=== PATIENT | male | born 1955 | race Caucasian/White ===

== ENCOUNTER 2017-03-29 08:45 | Inpatient (IN) | payer OTHER ==
[2017-03-29 12:28] VITALS: BMI 50.2
[2017-04-18] MEDS ORDERED: Midazolam HCl 2 mg/2 ml Vial ONE (08:09)
[2017-04-18] MEDS ORDERED: Ropivacaine 0.2% HCl/PF 20 ML ONE (08:09)
[2017-04-18] MEDS ORDERED: Fentanyl 100 MCG/2 ML VIAL ONE ×2 (08:09→10:43)
[2017-04-18] MEDS ORDERED: Sodium Chloride 0.9% 100 ML ONE ×2 (08:49→12:49)
[2017-04-18] MEDS ORDERED: Ondansetron HCl/PF 4 MG/2 ML Vial IVP PRN ×3 (10:32→12:55)
[2017-04-18] MEDS ORDERED: HYDROcodone/Acetaminophen 10/325 mg Tablet PO PRN ×2 (10:32)
[2017-04-18] MEDS ORDERED: Ketorolac Tromethamine 30 MG/ML VIAL IVP PRN (10:32)
[2017-04-18] MEDS ORDERED: traMADol HCl 50 MG TAB PO PRN ×3 (10:32→11:09)
[2017-04-18] MEDS ORDERED: Promethazine HCl 25 MG/ML VIAL IM PRN ×2 (10:32→12:55)
[2017-04-18] MEDS ORDERED: Ropivacaine HCl/PF 250 ML in Premix Bag 1 BAG NERVE BLCK SCH (10:32)
[2017-04-18] MEDS ORDERED: Fentanyl 100 MCG/2 ML VIAL IV PRN (10:33)
[2017-04-18] MEDS ORDERED: Bupivacaine HCl 0.5%/Epinephrine 1:200,000/PF 30 ml Vial ONE (10:38)
[2017-04-18] MEDS ORDERED: Neomycin-Polymyxin 1 ML AMP ONE (10:38)
[2017-04-18] MEDS ORDERED: Ondansetron HCl/PF 4 MG/2 ML Vial ONE (11:03)
[2017-04-18] MEDS ORDERED: Ketorolac Tromethamine 30 MG/ML VIAL ONE (11:03)
[2017-04-18] MEDS ORDERED: Succinylcholine Chloride 20 MG/ML 10 ml SYRINGE FS ONE (11:03)
[2017-04-18] MEDS ORDERED: ePHEDrine/0.9% NaCl/PF SYRINGE 50 mg/10 ml ONE (11:03)
[2017-04-18] MEDS ORDERED: Dexamethasone 20 MG/5 ML VIAL ONE (11:03)
[2017-04-18] MEDS ORDERED: Glycopyrrolate 0.2 MG/ML 5 ML SYRINGE ONE (11:03)
[2017-04-18] MEDS ORDERED: Lidocaine 1% PF 5 ML VIAL ONE (11:03)
[2017-04-18] MEDS ORDERED: PHENYLEPHRINE-NS 100 MCG/ML 10 ML SYRINGE ONE (11:03)
[2017-04-18] MEDS ORDERED: Propofol 200 MG/20 ML VIAL ONE (11:03)
[2017-04-18] MEDS ORDERED: Morphine Sulfate 2 MG/ML SYRINGE IVP PRN (11:09)
[2017-04-18] MEDS ORDERED: Acetaminophen 325 MG TAB PO PRN (11:09)
[2017-04-18] MEDS ORDERED: PROVENTIL INHALER 6.7 G (200 INHALATIONS) INH PRN (11:14)
[2017-04-18] MEDS ORDERED: Tranexamic Acid 1,000 MG in Sodium Chloride 0.9% 100 ML IVPB SCH ×2 (11:15→13:00)
[2017-04-18] MEDS ORDERED: Acetaminophen 1,000 MG in Premix Bag 1 BAG IVPB SCH (11:15)
[2017-04-18] MEDS ORDERED: Promethazine HCl 25 MG/ML VIAL SLOW IVP PRN (12:55)
[2017-04-18] MEDS ORDERED: Ropivacaine 0.5% HCl/PF (150 MG/30 ML VIAL) ONE (13:59)
--- NOTE | 2017-04-18 14:24 | RAD ---
TWO VIEWS OF THE LEFT KNEE: COMPARISON: None. HISTORY: Status post left knee arthroplasty. FINDINGS: Two views of the left knee show the patient to be status post left knee arthroplasty without perihar dware lucency or fracture. Air in the soft tissues and overlying skin rosalinda are from recent surge ry. IMPRESSION: Status post left knee arthroplasty without evidence of complication. POS: [facility]
--- NOTE | 2017-04-18 16:29 | PDOC.PN ---
- Subjective Encounter Start Date: 04/18/17 Encounter Start Time: 16:25 Subjective: Consulted for general med mgmt. s/p L TKA with hx of HTN, COPD, HLD, -: morbid obesity and osteoarthritis. c/o some L knee pain now relieved -: with nerve block and IV pain meds. - Objective MAR Reviewed: Yes Vital Signs & Weight: Weight Weight 340 lb Additional Labs: Laboratory Tests 03/29/17 03/29/17 13:20 13:20 WBC 8.3 Hgb 12.0 L Hct 37.1 L Plt Count 323 Sodium 137 Potassium 4.5 Chloride 104 Carbon Dioxide 24 Anion Gap 14 BUN 32 H Creatinine 1.09 Estimated GFR (MDRD) 69 Glucose 104 Calcium 10.0 EKG Reviewed by me: Yes (03/29/17 - NSR, No acute ST-T wave changes) Dx/Plan (1) HTN (hypertension) Code(s): I10 - ESSENTIAL (PRIMARY) HYPERTENSION Status: Chronic Qualifiers: Hypertension type: essential hypertension Qualified Code(s): I10 - Essential (primary) hypertension Comment: Resume Olmesartan/HCTZ 40/25 po daily (2) COPD (chronic obstructive pulmonary disease) Status: Chronic Comment: Resume home MDI's, Duonebs prn, O2 prn (3) HLD (hyperlipidemia) Code(s): E78.5 - HYPERLIPIDEMIA, UNSPECIFIED Status: Chronic Comment: Resume Pravachol 20mg HS (4) Morbid obesity Code(s): E66.01 - MORBID (SEVERE) OBESITY DUE TO EXCESS CALORIES Status: Acute (5) Status post total knee replacement, left Code(s): Z96.652 - PRESENCE OF LEFT ARTIFICIAL KNEE JOINT Status: Acute Comment: Pain control, ASA 325mg BID, DVT ppx - Plan plan discussed w/ family, PT/OT, criminal justice social worker, incentive spirometry, out of bed/ambulate, DVT proph w/lovenox, DVT proph w/SCDs Stable overall -: Resume home medications and monitor clinically -: DVT ppx -: Pain control per Ortho team -: AM lab: CBC * .
[2017-04-18] MEDS: Sodium Chloride 0.9% 1,000 ML IV SCH ×2 (17:08→20:35)
[2017-04-18] MEDS: Mometasone/Formoterol 120 PUFF INHALER INH SCH (18:47)
[2017-04-18] MEDS: Senokot S 8.6-50 MG TAB PO SCH (20:26)
[2017-04-18] MEDS: Aspirin 325 MG TAB PO SCH (20:26)
[2017-04-18] MEDS: Ferrous Gluconate 324 MG TAB PO SCH (20:26)
[2017-04-18] MEDS: Pravastatin Sodium 20 MG TAB PO SCH (20:26)
[2017-04-18] MEDS: Zolpidem Tartrate 5 MG TAB PO PRN (21:13)
[2017-04-19 06:16] LABS: Hematocrit 30.5 % (42.0-52.0); Mean Platelet Volume 7.1 fL (7.4-10.4); White Blood Cell (WBC) Count 10.7 thou/uL (4.8-10.8)
[2017-04-19] MEDS: Sodium Chloride 0.9% 1,000 ML IV SCH ×2 (06:44→11:09)
[2017-04-19] MEDS: Mometasone/Formoterol 120 PUFF INHALER INH SCH ×2 (07:16→19:32)
[2017-04-19] MEDS: Aspirin 325 MG TAB PO SCH ×2 (07:46→20:33)
[2017-04-19] MEDS: Hydrochlorothiazide 25 MG TAB PO SCH (07:46)
[2017-04-19] MEDS: Loratadine 10 MG TAB PO SCH (07:46)
[2017-04-19] MEDS: Multivitamin W/ Minerals 1 TAB PO SCH (07:47)
[2017-04-19] MEDS: Ferrous Gluconate 324 MG TAB PO SCH ×2 (07:47→20:33)
[2017-04-19] MEDS: Senokot S 8.6-50 MG TAB PO SCH ×2 (07:47→20:34)
[2017-04-19] MEDS ORDERED: Non-Formulary Item 1 EACH (Olmesartan/Hydrochlorothiazide [Benicar Hct] 1 TABLET) PO SCH (09:00)
[2017-04-19] MEDS: HYDROcodone/Acetaminophen 10/325 mg Tablet PO PRN ×2 (09:24→20:34)
--- NOTE | 2017-04-19 13:21 | OP ---
DATE OF PROCEDURE: 04/18/2017 PREOPERATIVE DIAGNOSIS: Osteoarthrosis, left knee. POSTOPERATIVE DIAGNOSIS: Osteoarthrosis, left knee. PROCEDURE: Left total knee arthroplasty. ANESTHESIA: General. SURGEON: Adolfo Ross M.D. ASSISTANTS: Gary Knight MD and Darwin Barragan PA-C COMPLICATIONS: None. CONDITION: Good. ESTIMATED BLOOD LOSS: Minimal. DRAINS: None. TOURNIQUET: Per anesthesia. TECHNIQUE: Consent was obtained. The patient was taken to the operating room, placed in the supine position. After adequate general anesthesia had been achieved, the patient's left knee was examine d. The patient had flexion only to 100 degrees and lacked 5 degrees full extension, varus deformity , moderate effusion, diffuse crepitus. He was then positioned, prepped and draped in the usual ster ile fashion and tourniquet placed on left upper thigh. Leg was elevated, exsanguinated, and tourniq uet inflated prior to incision. Standard midline vertical incision was made. It was taken down to subcutaneous tissue exposing extensor mechanism. Medial parapatellar arthrotomy was performed. Pat nidia subluxed laterally and the patient had severe tricompartmental disease with large erosive [place] es in the femur especially medial compartment. ACL was completely disrupted. Using an intramedulla ry guide, distal 5 degree resection on the femur was performed using AP and epicondylar access, prop er rotation and position and the size 7 cutting block was placed. Anterior, posterior, and chamfer cuts were completed for the size 7 evolution femur. Tibia was then subluxed anteriorly. Using exte rnal guide, a 0 mm resection was done from the medial compartment. The menisci and cruciate ligamen ts were then debrided. Additional medial release was performed and good balancing was noted at 0 an d 90 degrees with the 14 mm spacer block. The patella was then measured approximately 9-10 mm resec tion was performed and a 38 mm patella was medialized. The trial components were then placed, a 7 f emur, a 7 tibia, 14 mm bearing surface and 38 patella was put through range of motion. The patient had full extension, flexion up to 120 degrees, good balancing and stability through full range. Tib ial base plate was then marked and prepared with a broach. All surfaces were irrigated copiously, d ried, and the femur, tibia, and patella cemented. Excess cement removed and allowed to harden with a 14 mm spacer. The 14 mm spacer was chosen and snap fit. The knee was then irrigated copiously an d the hemostasis obtained. Arthrotomy closed with #2 M[place]il[place], #1 Vicryl, the subcu with 0 and 2-0 Vicryl, and the skin with rosalinda. Sterile bulky dressing was applied and patient taken to recover y in stable condition. Prognosis was good. Begin rehab protocol. Darwin Barragan, Physician [employer] was critical to the positioning and retraction of the patient du e to the patient's significant obesity and stiffness. He allowed access to the critical measurement and alignments.
--- NOTE | 2017-04-19 16:50 | PDOC.PN ---
- Subjective Encounter Start Date: 04/19/17 Encounter Start Time: 16:35 Subjective: c/o pain in L knee but overall ok. s/p L TKA POD #1. - Objective MAR Reviewed: Yes Vital Signs & Weight: Vital Signs (12 hours) Temp Pulse Resp BP Pulse Ox 04/19/17 16:00 97.5 F L 85 19 94/65 91 L 04/19/17 08:00 98.1 F 93 18 97 Weight Admit Weight 340 lb Weight 340 lb I&O: 04/18/17 04/19/17 04/20/17 06:59 06:59 06:59 Intake Total 3530 Output Total 1830 Balance 1700 Result Diagrams: 04/19/17 05:26 Phys Exam - Physical Examination Constitutional: NAD HEENT: PERRLA, oral pharynx no lesions Neck: no JVD, supple diminished in bases Respiratory: no wheezing Cardiovascular: RRR Gastrointestinal: soft, non-tender, no distention, positive bowel sounds L knee with SAMUEL wrap in place Musculoskeletal: pulses present, edema present Neurological: moves all 4 limbs Psychiatric: A&O x 3 Skin: normal turgor, cap refill <2 seconds Dx/Plan (1) HTN (hypertension) Code(s): I10 - ESSENTIAL (PRIMARY) HYPERTENSION Status: Chronic Qualifiers: Hypertension type: essential hypertension Qualified Code(s): I10 - Essential (primary) hypertension Comment: Resume Olmesartan/HCTZ 40/25 po daily, stable (2) COPD (chronic obstructive pulmonary disease) Status: Chronic Comment: Resume home MDI's, Duonebs prn, O2 prn (3) HLD (hyperlipidemia) Code(s): E78.5 - HYPERLIPIDEMIA, UNSPECIFIED Status: Chronic Comment: Resume Pravachol 20mg HS (4) Morbid obesity Code(s): E66.01 - MORBID (SEVERE) OBESITY DUE TO EXCESS CALORIES Status: Acute (5) Status post total knee replacement, left Code(s): Z96.652 - PRESENCE OF LEFT ARTIFICIAL KNEE JOINT Status: Acute Comment: Pain control, ASA 325mg BID, DVT ppx, Joint U protocol - Plan plan discussed w/ family, PT/OT, nephrology social worker, incentive spirometry, out of bed/ambulate, DVT proph w/SCDs Stable overall -: Continue routine Joint U protocol -: Resume home pulmonary medications -: DVT ppx -: AM lab: CBC * .
[2017-04-19] MEDS: Pravastatin Sodium 20 MG TAB PO SCH (20:34)
[2017-04-19] MEDS: Zolpidem Tartrate 5 MG TAB PO PRN (20:34)
[2017-04-20] MEDS: Sodium Chloride 0.9% 1,000 ML IV SCH ×2 (02:29→07:29)
[2017-04-20 05:56] LABS: Hematocrit 31.4 % (42.0-52.0); Mean Platelet Volume 6.8 fL (7.4-10.4); Red Blood Cell (RBC) Count 3.46 mill/uL (4.70-6.10); White Blood Cell (WBC) Count 10.1 thou/uL (4.8-10.8)
[2017-04-20] MEDS: Mometasone/Formoterol 120 PUFF INHALER INH SCH (06:44)
[2017-04-20] MEDS: Aspirin 325 MG TAB PO SCH (07:28)
[2017-04-20] MEDS: Senokot S 8.6-50 MG TAB PO SCH (07:28)
[2017-04-20] MEDS: Ferrous Gluconate 324 MG TAB PO SCH (07:28)
[2017-04-20] MEDS: Hydrochlorothiazide 25 MG TAB PO SCH (07:29)
[2017-04-20] MEDS: Loratadine 10 MG TAB PO SCH (07:29)
[2017-04-20] MEDS: Multivitamin W/ Minerals 1 TAB PO SCH (07:29)
[2017-04-20] MEDS ORDERED: Tamsulosin HCl 0.4 MG CAP PO SCH (09:15)
[2017-04-20] MEDS: HYDROcodone/Acetaminophen 10/325 mg Tablet PO PRN ×2 (09:39→13:54)
[2017-04-20 11:50] VITALS: BP 109/54; TEMP 97.7
== END 2017-04-20 17:30 | disposition home or self-care (01) | DRG 470 ==
LOC: SURG B 04-18 07:12 → SJJU 04-18 11:51
PROVIDERS: ADMIT Orthopaedic Surgery; ATTEND Orthopaedic Surgery
PROC: 0SRD0J9 Replacement of Left Knee Joint with Synthetic Substitute, Cemented, Open Approach (ICD-10-PCS; principal; 2017-04-18)
PROC: 3E0T3CZ (ICD-10-PCS; 2017-04-18)
DX: M17.12 Unilateral primary osteoarthritis, left knee (principal); Z68.43 Body mass index [BMI] 50.0-59.9, adult; I10 Essential (primary) hypertension; J44.9 Chronic obstructive pulmonary disease, unspecified; E78.5 Hyperlipidemia, unspecified; E66.01 Morbid (severe) obesity due to excess calories
CPT/HCPCS: 36415; 85027; 86850; 86900; 86901; C1713; C1776; G8978-GP-CL; G8979-GP-CI; J0670; J1100; J1885; J2001; J2250; J2405; J2704; J2795; J3010; J7050

== ENCOUNTER 2021-05-09 19:30 | Outpatient (CLI) | payer MEDICARE | END 2021-05-09 19:31 | disposition home or self-care (01) | LOC: SLEEPLAB 19:30 | PROVIDERS: ATTEND Psychiatry & Neurology Neurology | DX: G47.33 Obstructive sleep apnea (adult) (pediatric) (principal); R53.83 Other fatigue; R06.83 Snoring; G47.00 Insomnia, unspecified; G47.10 Hypersomnia, unspecified; J44.9 Chronic obstructive pulmonary disease, unspecified | CPT/HCPCS: 95810 ==

== ENCOUNTER 2021-06-07 19:00 | Outpatient (CLI) | payer MEDICARE | END 2021-06-07 19:01 | disposition home or self-care (01) | LOC: SLEEPLAB 19:00 | PROVIDERS: ATTEND Psychiatry & Neurology Neurology | DX: G47.33 Obstructive sleep apnea (adult) (pediatric) (principal); R06.83 Snoring; R53.83 Other fatigue; G47.10 Hypersomnia, unspecified; E66.9 Obesity, unspecified; Z68.43 Body mass index [BMI] 50.0-59.9, adult | CPT/HCPCS: 95811 ==

== ENCOUNTER 2023-12-13 12:42 | Outpatient (CLI) | payer MEDICARE ==
[2023-12-13 13:51] LABS: #Basophils 0.04 10x3/uL (0.0-0.2); #Monocytes 0.63 10x3/uL (0.0-1.1); #Neutrophils 3.69 10x3/uL (1.5-8.4); %Basophils 0.6 % (0.0-2.0); %Eosinophils 7.8 % (0.0-6.0); %Lymphocytes 23.9 % (18.0-47.0); %Monocytes 9.8 % (0.0-10.0); %Neutrophils 57.6 % (40.0-75.0); Hematocrit 35.4 % (38.8-50.0); Hemoglobin 11.9 g/dL (13.5-17.5); Mean Corpuscular HGB CONC 33.6 g/dL (32.0-36.0); Mean Corpuscular Hemoglobin 32.6 pg (27.0-33.0); Mean Platelet Volume 8.8 fl (7.4-10.4); Platelet Count 204 10x3/uL (150-450); RBC Distribution Width 13.8 % (11.5-14.5); Red Blood Cell (RBC) Count 3.65 10x6/uL (4.32-5.72); White Blood Cell (WBC) Count 6.4 10x3/uL (3.5-10.5)
[2023-12-13 14:55] LABS: Anion Gap 14 mmol/L (10-20); BUN (Urea Nitrogen) 29 mg/dL (8.4-25.7); Calc. Creatinine Clearance 0 mL/min (70-130); Calcium 9.8 mg/dL (7.8-10.44); Carbon Dioxide 24 mmol/L (23-31); Chloride 103 mmol/L (98-107); Estimated GFR 56; Glucose 124 mg/dL (80-115); Potassium 4.2 mmol/L (3.5-5.1); Sodium 137 mmol/L (136-145)
== END 2023-12-13 12:43 | disposition home or self-care (01) ==
LOC: LABBT 12:42
PROVIDERS: ATTEND Surgery
DX: Z01.818 Encounter for other preprocedural examination (principal); K43.9 Ventral hernia without obstruction or gangrene
CPT/HCPCS: 80048; 85025; 93005; 93010

== ENCOUNTER 2023-12-21 06:49 | Day surgery (SDC) | payer MEDICARE ==
[2023-12-13 13:35] VITALS: BMI 52.7
[2023-12-21] MEDS ORDERED: fentaNYL PF 100 MCG/2 ML SYRINGE ONE (08:12)
[2023-12-21] MEDS ORDERED: Lidocaine 1% PF 5 ML VIAL ONE (08:12)
[2023-12-21] MEDS ORDERED: Rocuronium Bromide 10 MG/ML (10ML VIAL) ONE (08:12)
[2023-12-21] MEDS ORDERED: PROPOFOL 20 ML ONE (08:12)
[2023-12-21] MEDS ORDERED: EPINEPHrine 1 MG/ML VIAL ONE (08:25)
[2023-12-21] MEDS ORDERED: Bupivacaine 0.25% HCL 30 ML VIAL ONE (08:25)
[2023-12-21] MEDS ORDERED: SUGAMMADEX SODIUM 200 MG/2 ML VIAL ONE ×2 (08:31→11:14)
[2023-12-21] MEDS ORDERED: Ondansetron PF 4 MG/2 ML Vial ONE ×2 (08:31→11:15)
[2023-12-21] MEDS ORDERED: fentaNYL 50 mcg/mL 1 mL Vial ONE ×2 (08:49→11:41)
[2023-12-21] MEDS ORDERED: HYDROmorphone 2 MG/ML VIAL ONE (08:52)
[2023-12-21] MEDS ORDERED: CEFAZOLIN 2 GM VIAL ONE (09:19)
[2023-12-21] MEDS ORDERED: Sodium Chloride 0.9% 100 ML ONE (09:19)
[2023-12-21] MEDS ORDERED: ePHEDrine Sulfate 50 MG/10 ML VIAL ONE (09:43)
[2023-12-21] MEDS ORDERED: PHENYLEPHRINE-NS 100 MCG/ML 10 ML SYRINGE ONE (09:53)
[2023-12-21] MEDS ORDERED: Dexamethasone 20 MG/5 ML VIAL ONE (09:53)
[2023-12-21] MEDS ORDERED: Glycopyrrolate 0.2 MG/ML 5 ML SYRINGE ONE (10:40)
[2023-12-21] MEDS ORDERED: Atropine Sulfate 0.4 mg/1 ml Vial ONE (10:41)
[2023-12-21] MEDS ORDERED: HYDROcodone/Acetaminophen 5/325 mg Tablet ONE (14:12)
== END 2023-12-21 14:46 | disposition home or self-care (01) ==
LOC: SDC 06:49
PROVIDERS: ATTEND Surgery
PROC: 0WQF0ZZ Repair Abdominal Wall, Open Approach (ICD-10-PCS; principal; 2023-12-21)
DX: K43.9 Ventral hernia without obstruction or gangrene (principal)
CPT/HCPCS: 49595; J0171; J3010; A4314; C1781; J0461; J0665; J1100; J1170; J2405; J2704; J3490